=== PATIENT | male | born 1975 | race Caucasian/White ===

== ENCOUNTER 2017-10-13 09:14 | Emergency (ER) | payer OTHER ==
[2017-10-13 09:20] VITALS: BP 149/83; PULSE 73; TEMP 97.8; BMI 25.0
--- NOTE | 2017-10-13 09:52 | PDOC ---
History of Present Illness - General Chief Complaint: Pain Stated Complaint: RT ARM PAIN, NUMBNESS Time Seen by Provider: 10/13/17 09:36 History Source: Patient Exam Limitations: No Limitations Past History - Travel Traveled outside of the country in the last 30 days: No Close contact w/someone who was outside of country & ill: No - Past Medical History Allergies/Adverse Reactions: Allergies Allergy/AdvReac Type Severity Reaction Status Date / Time aspirin Allergy Verified 10/13/17 09:17 Home Medications: Ambulatory Orders Clotrimazole [Lotrimin] 30 gm TP DAILY #1 cream..g. 08/07/15 Famotidine [Pepcid] 08/07/15 Cyclobenzaprine HCl [Flexeril -] 10 mg PO HS #10 tablet 10/13/17 Methylprednisolone [Medrol -] 4 mg PO ASDIR #21 tablet 10/13/17 COPD: No - Immunization History Immunization Up to Date: Yes - Suicide/Smoking/Psychosocial Hx Smoking Status: Yes Smoking History: Current every day smoker Number of Cigarettes Smoked Daily: 20 Information on smoking cessation initiated: Yes 'Breaking Loose' booklet given: 10/13/17 Hx Alcohol Use: No Drug/Substance Use Hx: No Substance Use Type: None Review of Systems - Review of Systems Able to Perform ROS?: Yes Comments:: 10/13/17 09:52 CONSTITUTIONAL: Absent: fever, chills, diaphoresis, generalized weakness, malaise, loss of appetite HEENT: Absent: rhinorrhea, nasal congestion, throat pain, throat swelling, difficulty swallowing, mouth swelling, ear pain, eye pain, visual Changes CARDIOVASCULAR: Absent: chest pain, loss of consciousness, palpitations, irregular heart rate, peripheral edema RESPIRATORY: Absent: cough, shortness of breath, dyspnea with exertion, orthopnea, wheezing, stridor, hemoptysis GASTROINTESTINAL: Absent: abdominal pain, abdominal distension, nausea, vomiting, diarrhea, constipation, melena, hematochezia GENITOURINARY: Absent: dysuria, frequency, urgency, hesitancy, hematuria, flank pain, genital pain MUSCULOSKELETAL: Absent: myalgia, arthralgia, joint swelling SKIN: Absent: rash, itching, pallor HEMATOLOGIC/IMMUNOLOGIC: Absent: easy bleeding, easy bruising, lymphadenopathy, frequent infections ENDOCRINE: Absent: unexplained weight gain, unexplained weight loss, heat intolerance, cold intolerance NEUROLOGIC: Absent: headache, focal weakness or paresthesias, dizziness, unsteady gait, seizure, mental status changes, bladder or bowel incontinence PSYCHIATRIC: Absent: anxiety, depression, suicidal or homicidal ideation, hallucinations. Is the patient limited Faroese proficient: No *Physical Exam - Vital Signs Last Vital Signs Temp Pulse Resp BP Pulse Ox 97.8 F 73 18 149/83 99 10/13/17 09:17 10/13/17 09:17 10/13/17 09:17 10/13/17 09:17 10/13/17 09:17 - Physical Exam Comments: 10/13/17 09:52 GENERAL: Well developed, well nourished. Awake and alert. No acute distress. HEENT: Normocephalic, atraumatic. PERRLA, EOMI. No conjunctival pallor. Sclera are non- icteric. Moist mucous membranes. Oropharynx is clear. NECK: Supple. Full ROM. No JVD. Carotid pulses 2+ and symmetric, without bruits. No thyromegaly. No lymphadenopathy. CARDIOVASCULAR: Regular rate and rhythm. No murmurs, rubs, or gallops. Distal pulses are 2+ and symmetric. PULMONARY: No evidence of respiratory distress. Lungs clear to auscultation bilaterally. No wheezing, rales or rhonchi. ABDOMINAL: Soft. Non-tender. Non-distended. No rebound or guarding. No organomegaly. Normoactive bowel sounds. MUSCULOSKELETAL Normal range of motion at all joints. No bony deformities or tenderness. No CVA tenderness. EXTREMITIES: No cyanosis. No clubbing. No edema. No calf tenderness. SKIN: Warm and dry. Normal capillary refill. No rashes. No jaundice. NEUROLOGICAL: Alert, awake, appropriate. Cranial nerves 2-12 intact. No deficits to light touch and temperature in face, upper extremities and lower extremities. No motor deficits in the in face, upper extremities and lower extremities. Normoreflexic in the upper and lower extremities. Normal speech. Toes are down- going bilaterally. Gait is normal without ataxia. PSYCHIATRIC: Cooperative. Good eye contact. Appropriate mood and affect. *DC/Admit/Observation/Transfer Diagnosis at time of Disposition: Right elbow pain - Discharge Dispostion Disposition: HOME Condition at time of disposition: Stable Admit: No - Prescriptions Prescriptions: Cyclobenzaprine HCl [Flexeril -] 10 mg PO HS #10 tablet Methylprednisolone [Medrol -] 4 mg PO ASDIR #21 tablet - Referrals Referrals: Quincy Arizmendi MD [Staff Physician] - Elton Longo MD [Staff Physician] - - Patient Instructions Printed Discharge Instructions: DI for Elbow Pain Additional Instructions: Your x-ray was negative for arthritis, fractures today. You most likely have a nerve impingement in your elbow causing the numbness and tingling. Please take the steroids as directed on the package. These take the Flexeril at night before you go to bed. Do not drive after taking this medication as it may make you sleepy. After you finish the prednisone he may take Motrin 800 mg every 8 hours as needed for pain. Please follow up with orthopedics in 3-5 days. Return to the emergency department if you have worsening pain, increased numbness and tingling, or have any changes in your symptoms. - Post Discharge Activity Forms/Work/School Notes: Back to Work
[2017-10-13] MEDS ORDERED: KETOROLAC TROMETHAMINE 60 MG/2 ML VIAL IM ONE (10:30)
[2017-10-13] MEDS ORDERED: KETOROLAC TROMETHAMINE 60 MG/2 ML VIAL ONE (10:31)
== END 2017-10-13 11:33 | disposition home or self-care (01) ==
LOC: JERFT 09:14
PROC: 3E0233Z Introduction of Anti-inflammatory into Muscle, Percutaneous Approach (ICD-10-PCS; principal; 2017-10-13)
DX: M25.521 Pain in right elbow (principal); F17.210 Nicotine dependence, cigarettes, uncomplicated
CPT/HCPCS: 73070-TC-RT-FY; 96372; 99281-25

== ENCOUNTER 2018-11-07 13:28 | Emergency (ER) | payer OTHER | END 2018-11-07 15:23 | disposition home or self-care (01) | LOC: JERFT 13:28 ==

== ENCOUNTER 2019-01-08 19:04 | Emergency (ER) | payer SELFPAY ==
--- NOTE | 2019-01-08 19:26 | PDOC ---
Rapid Medical Evaluation Time Seen by Provider: 01/08/19 19:25 Medical Evaluation: Allergies Allergy/AdvReac Type Severity Reaction Status Date / Time aspirin Allergy Verified 11/07/18 13:35 01/08/19 19:25 I have performed a brief in-person evaluation of this patient. The patient presents with a chief complaint of: right ear swelling Pertinent physical exam findings: helix on right ear erythematous and swollen I have ordered the following: deferred to FT provider The patient will proceed to the ED for further evaluation. Discharge Disposition - Diagnosis Swelling of external ear - Referrals - Patient Instructions - Post Discharge Activity
[2019-01-08 19:39] VITALS: BMI 27.3
--- NOTE | 2019-01-08 19:49 | PDOC ---
History of Present Illness - General Chief Complaint: Wound Stated Complaint: ALLERGIC REACTION Time Seen by Provider: 01/08/19 19:25 - History of Present Illness Initial Comments: 01/08/19 19:44 43-year-old male without comorbidities presents for evaluation of right-sided urine neck swelling 2 days without systemic symptoms. First noticed after a new earring was placed in his right ear Past History - Past Medical History Allergies/Adverse Reactions: Allergies Allergy/AdvReac Type Severity Reaction Status Date / Time aspirin Allergy Verified 01/08/19 19:28 Home Medications: Ambulatory Orders NK [No Known Home Medication] 01/08/19 COPD: No - Immunization History Immunization Up to Date: Yes - Suicide/Smoking/Psychosocial Hx Smoking Status: Yes Smoking History: Current every day smoker Have you smoked in the past 12 months: Yes Number of Cigarettes Smoked Daily: 10 Information on smoking cessation initiated: No 'Breaking Loose' booklet given: 10/13/17 Hx Alcohol Use: No Drug/Substance Use Hx: No Substance Use Type: None Review of Systems - Review of Systems HEENTM: Yes: See HPI *Physical Exam - Vital Signs Last Vital Signs Temp Pulse Resp BP Pulse Ox 99.1 F 89 18 139/82 97 01/08/19 19:26 01/08/19 19:26 01/08/19 19:26 01/08/19 19:26 01/08/19 19:26 - Physical Exam Comments: 01/08/19 19:44 There is significant erythema about the right side of the neck and pain of the right ear there is moderate amount of warmth, mild induration with tenderness and firmness. There is no palpable fluctuance. ED Treatment Course - RADIOLOGY Radiology Studies Ordered: Category Date Time Status NECK CTA [CT] Stat CT Scan 01/08/19 19:42 Ordered Medical Decision Making - Medical Decision Making 01/08/19 19:46 This patient appears to have head and neck abscess. There were appropriate blood work and imaging I will transfer him to the main emergency room *DC/Admit/Observation/Transfer Diagnosis at time of Disposition: Swelling of external ear, Neck swelling - Referrals - Patient Instructions - Post Discharge Activity
--- NOTE | 2019-01-08 20:09 | PDOC ---
*Physical Exam - Vital Signs Last Vital Signs Temp Pulse Resp BP Pulse Ox 99.1 F 89 18 139/82 97 01/08/19 19:26 01/08/19 19:26 01/08/19 19:26 01/08/19 19:26 01/08/19 19:26 - Physical Exam HEENT: positive: TMs Normal, Pharynx Normal, Other (arotid area enlargement. Pinna erythematous and swollen.Warm to touchand tender) Neck: positive: Lymphadenopathy (R) ED Treatment Course - LABORATORY CBC & Chemistry Diagram: 01/08/19 20:00 01/08/19 20:00 Medical Decision Making - Medical Decision Making 01/08/19 22:14 CT soft tissue neck as follows: Superficial lobe of the right parotid gland demonstrate mildly increased density diffusely which may be inflammatory/ infectious basis probably less likely neoplastic disease. There is equal vocal mild dilatation of the right parotid duct. No obvious ductal calculus is visualized. Several nonspecific myalgias enlarged right periparotid lymph nodes are seen within 1 cm maximum short axis diameter. This mildly increased subcutaneous soft tissue stranding overlying the right parotid gland mild thickening of the adjacent right platysma muscle is also visualize. Several nonspecific mildly enlarged bilateral jugulodigastric nodes within 1.1 cm maximum short axis diameter. ENT consultation is suggested. Patient case discussed with Dr. Sullivan ENT at [facility]. Patient is accepted to transfer to the ER for further evaluation by ENT. Advised to give IV antibiotics. One dose of Zosyn was ordered in the ER. *DC/Admit/Observation/Transfer Diagnosis at time of Disposition: Neck swelling, Acute parotitis Swelling of external ear Qualifiers: Laterality: right Qualified Code(s): H61.891 - Other specified disorders of right external ear Cellulitis of earlobe Qualifiers: Laterality: right Qualified Code(s): H60.11 - Cellulitis of right external ear - Discharge Dispostion Disposition: TRANSFER ACUTE CARE/OTHER HOSP - Referrals - Patient Instructions - Post Discharge Activity
[2019-01-08 20:21] LABS: BASO % 0.7 % (0-2.0); EOS % 0.7 % (0-4.5); HEMATOCRIT 47.7 % (35.4-49); HEMOGLOBIN 16.5 GM/dL (11.7-16.9); MCHC 34.5 g/dl (32.0-35.9); MEAN CELL VOLUME 92.9 fl (80-96); MEAN PLT VOLUME 7.6 fl (7.5-11.1); NEUT % 59.6 % (42.8-82.8); PLATELET COUNT 263 K/MM3 (134-434); RBC 5.14 M/mm3 (4.00-5.60); RDW 13.7 % (11.9-15.9); WHITE BLOOD COUNT 9.6 K/mm3 (4.0-10.0)
[2019-01-08 20:38] LABS: ALBUMIN 4.1 g/dl (3.4-5.0); BILIRUBIN,TOTAL 0.2 mg/dL (0.2-1); BLOOD UREA NITROGEN 10.5 mg/dL (7-18); CALCIUM 9.7 mg/dL (8.5-10.1); POTASSIUM 4.8 mmol/L (3.5-5.1); TOT PROT 7.8 g/dl (6.4-8.2)
[2019-01-08 21:28] VITALS: TEMP 98.6
[2019-01-08] MEDS ORDERED: PIPERACILLIN/TAZOB 3.375 GM 3.375 GM in DEXTROSE 5%-WATER - 50 ML IVPB ONE (22:12)
[2019-01-08] MEDS ORDERED: PIPERACILLIN/TAZOB 3.375 GM 3.375 GM/50 ML BAG IVPB ONE (22:18)
[2019-01-08 22:42] VITALS: BP 149/94; PULSE 77
== END 2019-01-08 23:02 | disposition short-term general hospital (02) ==
LOC: JERFT 19:04 → JER 19:04
DX: H60.11 Cellulitis of right external ear (principal); K11.21 Acute sialoadenitis
CPT/HCPCS: 36415; 70491-TC; 80053; 85025; 99284-25

== ENCOUNTER 2021-11-02 09:13 | Emergency (ER) | payer OTHER ==
[2021-11-02 09:20] VITALS: BP 170/91; PULSE 77; TEMP 98.1; BMI 28.5
[2021-11-02] MEDS ORDERED: ACETAMINOPHEN 500 MG TABLET (FP) PO ONE (10:03)
[2021-11-02] MEDS ORDERED: ACETAMINOPHEN 500 MG TABLET (FP) ONE (11:04)
[2021-11-02 12:07] LABS: BASO % 0.6 % (0-2.0); EOS % 1.2 % (0-4.5); HEMATOCRIT 46.8 % (35.4-49); HEMOGLOBIN 16.2 GM/dL (11.7-16.9); LYMPH % 33.1 % (8-40); MCH 31.9 pg (25.7-33.7); MCHC 34.5 g/dl (32.0-35.9); MEAN CELL VOLUME 92.4 fl (80-96); MEAN PLT VOLUME 7.6 fl (7.5-11.1); MONO % 6.4 % (3.8-10.2); NEUT % 58.7 % (42.8-82.8); PLATELET COUNT 256 10^3/uL (134-434); RBC 5.06 M/mm3 (4.00-5.60); RDW 13.3 % (11.9-15.9); WHITE BLOOD COUNT 7.9 K/mm3 (4.0-10.0)
[2021-11-02 12:36] LABS: ALBUMIN 3.8 g/dl (3.4-5.0); BLOOD UREA NITROGEN 11.2 mg/dL (7-18)
[2021-11-02 12:38] LABS: URIC ACID 4.6 mg/dL (2.6-7.2)
[2021-11-02 12:39] LABS: CREATININE 0.8 mg/dL (0.55-1.3)
[2021-11-02 12:41] LABS: BILIRUBIN,TOTAL 0.4 mg/dL (0.2-1); TOT PROT 7.3 g/dl (6.4-8.2)
== END 2021-11-02 13:22 | disposition home or self-care (01) ==
LOC: JERFT 09:13
DX: M79.602 Pain in left arm (principal)
CPT/HCPCS: 36415; 73030-TC-LT-FY; 73070-TC-LT-FY; 80053; 84550; 85025; 99285-25